=== PATIENT | male | born 1965 | race Caucasian/White ===

== ENCOUNTER 2016-12-17 21:06 | Emergency (ER) | payer BC ==
[2016-12-17] MEDS ORDERED: Acetaminophen TAB* 325 MG PO ONE (22:47)
--- NOTE | 2016-12-18 01:09 | ED ---
Jasper King Karl, scribed for Memo Hollingsworth MD on 12/18/16 at 0028 . Head Injury - HPI Summary HPI Summary: Pt is a 51 y/o male that presents to the ED c/o a head injury that he sustained 2 days ago. Pt reported that he fell forward out of a chair and hit his left shoulder on a table then the front of his head into a wall. Pt has a 4cm by 2 cm bruise on the top of his scalp that hurts to touch. Pt stated that he woke up the next day after hitting his head with 7/10 pain in the back of his head and top of his head, "probably the worst pain I have had in a long time, I was so out of it." Pt also reported pain in his neck/shoulders, a LIU, and stated that pretty much any movement aggravates his pain. Pt denied visual changes. - History Of Current Complaint Chief Complaint: EDHeadInjury Stated Complaint: FALL/HEAD INJURY Time Seen by Provider: 12/17/16 22:32 Hx Obtained From: Patient Mechanism Of Injury: Fall From Height Of: - a chair Onset/Duration: Started Days Ago, Traumatic, Still Present Onset of Pain: Immediate Severity Currently: Moderate Pain Intensity: 7 - head pain Pain Scale Used: 0-10 Numeric Location of Head Injury: Frontal Character: Throbbing Aggravating Factor(s): Movement Associated Signs And Symptoms: Neck Pain, Bruising, Headache - Allergies/Home Medications Allergies/Adverse Reactions: Allergies Allergy/AdvReac Type Severity Reaction Status Date / Time No Known Allergies Allergy Verified 12/17/16 21:26 PMH/Surg Hx/FS Hx/Imm Hx Endocrine/Hematology History: Denies: Hx Diabetes Cardiovascular History: Denies: Hx Hypertension, Hx Pacemaker/ICD Respiratory History: Denies: Hx Asthma, Other Respiratory Problems/Disorders - VALVE ISSUES History: Denies: Hx Dialysis, Hx Renal Disease Sensory History: Denies: Hx Hearing Aid Psychiatric History: Denies: Hx Panic Disorder - Cancer History Hx Chemotherapy: No Hx Radiation Therapy: No - Surgical History Surgery Procedure, Year, and Place: RT WRIST,APPY 2006 Infectious Disease History: No Infectious Disease History: Denies: Traveled Outside the [place] in Last 30 Days - Family History Known Family History: Positive: Cardiac Disease, Hypertension Negative: Diabetes - Social History Alcohol Use: None Substance Use Type: Reports: None Smoking Status (MU): Unknown if Ever Smoked Review of Systems Constitutional: Negative Negative: Blurred Vision ENT: Negative Cardiovascular: Negative Respiratory: Negative Gastrointestinal: Negative Genitourinary: Negative Positive: Myalgia - neck/shoulder pain Positive: Bruising - 4cm by 2cm bruise on top of scalp Positive: Headache Psychological: Normal All Other Systems Reviewed And Are Negative: Yes Physical Exam Triage Information Reviewed: Yes Vital Signs On Initial Exam: Initial Vitals Temp Pulse Resp BP Pulse Ox 99.0 F 90 18 180/108 98 12/17/16 21:16 12/17/16 21:16 12/17/16 21:16 12/17/16 21:16 12/17/16 21:16 Vital Signs Reviewed: Yes Appearance: Positive: Well-Appearing, No Pain Distress Skin: Positive: Warm, Skin Color Reflects Adequate Perfusion, Dry Head/Face: Positive: Scalp - tender to palpation at 4cm by 2cm bruise on top of scalp. Negative: Cephalohematoma Eyes: Positive: EOMI, LIDIA ENT: Positive: Normal ENT inspection, TMs normal Neck: Positive: Supple, Tenderness @ - uppper cervical spine with good ROM Respiratory/Lung Sounds: Positive: Clear to Auscultation, Breath Sounds Present Cardiovascular: Positive: RRR Abdomen Description: Positive: Nontender, Soft Bowel Sounds: Positive: Present Musculoskeletal: Positive: Strength/ROM Intact, Other - tender in LUE near shoulder Neurological: Positive: Normal, Sensory/Motor Intact, Alert, Oriented to Person Place, Time Psychiatric: Positive: Affect/Mood Appropriate - Darell Coma Scale Coma Scale Total: 15 Diagnostics - Vital Signs Vital Signs Temp Pulse Resp BP Pulse Ox 12/17/16 21:16 99.0 F 90 18 180/108 98 - Laboratory Lab Statement: Any lab studies that have been ordered have been reviewed, and results considered in the medical decision making process. - CT CT Brain CT Interpretation: No Acute Changes CT Interpretation Completed By: Radiologist - IMPRESSION: No acute intracranial pathology. CT Cervical Spine CT Interpretation: No Acute Changes CT Interpretation Completed By: Radiologist - IMPRESSION: No acute cervical spine injury. Head Injury Course/Dx Assessment/Plan: IMPROVED IN ED WITH ACETAMINOPHEN. DISCUSSED RESULTS WITH PATIENT. DISCHARGE HOME STABLE. - Diagnoses Provider Diagnoses: Concussion, Cervical strain Discharge - Discharge Plan Condition: Stable Disposition: HOME Patient Education Materials: Concussion (ED), Cervical Strain (ED) Referrals: Frank Langford MD [Primary Care Provider] - Additional Instructions: FOLLOW UP WITH YOUR DOCTOR. RETURN TO THE EMERGENCY DEPARTMENT FOR ANY WORSENING OF YOUR CONDITION; WEAKNESS , NUMBNESS, DIFFICULTY WITH VISION OR SPEECH, YOU FEEL ILL OR QUESTIONS OR CONCERNS. The documentation as recorded by the Jasper camp Karl accurately reflects the service I personally performed and the decisions made by me, Memo Hollingsworth MD.
[2016-12-18 01:39] VITALS: BP 138/90
--- NOTE | 2016-12-18 07:28 | RAD ---
INDICATION: Trauma, headache. COMPARISON: Comparison is made with a prior CT of the brain from November 27, 2012. TECHNIQUE: Contiguous axial sections of the brain were obtained from the skull base to the vertex without contrast. FINDINGS: The ventricles, cisterns and sulci are within normal limits. No significant focal abnormality or mass effect is seen. There is no evidence for hemorrhage. No significant focal osseous abnormality is seen. The visualized portion of the paranasal sinuses and mastoid air cells appear clear. IMPRESSION: NO EVIDENCE FOR ACUTE INTRACRANIAL ABNORMALITY.
--- NOTE | 2016-12-18 07:31 | RAD ---
INDICATION: Trauma, neck pain. COMPARISON: There are no prior studies available for comparison. TECHNIQUE: Contiguous axial sections were obtained from the skull base through the C7 vertebra. Images were reconstructed in the sagittal and coronal planes. FINDINGS: There is straightening of the cervical spine with loss of the normal cervical lordosis. No prevertebral soft tissue swelling or fracture is seen. At the C5-6 level there is posterior uncinate process spurring associated with a mild broad-based disc bulge. There are mild hypertrophic changes within the facet joints. There is mild spinal canal narrowing and moderate bilateral neural foraminal narrowing. IMPRESSION: 1. STRAIGHTENING OF THE CERVICAL SPINE, NO EVIDENCE FOR FRACTURE OR SUBLUXATION. 2. MODERATE DEGENERATIVE DISC DISEASE AT THE C5-6 LEVEL.
== END 2016-12-18 01:56 | disposition home or self-care (01) ==
LOC: ED 21:06
DX: S06.0X9A Concussion with loss of consciousness of unspecified duration, initial encounter (principal); S16.1XXA Strain of muscle, fascia and tendon at neck level, initial encounter; M50.322 Other cervical disc degeneration at C5-C6 level; W07.XXXA Fall from chair, initial encounter; Y93.9 Activity, unspecified; Y92.9 Unspecified place or not applicable
CPT/HCPCS: 70450; 72125; 99282; A9270-GY

== ENCOUNTER 2020-12-21 04:55 | Inpatient (IN) ==
[2020-12-21 05:38] LABS: ABS Basophils 0.1 10^3/ul (0-0.2); ABS Eosinophils 0.3 10^3/ul (0-0.6); ABS Monocytes 0.9 10^3/ul (0-0.8); ABS Neutrophils 5.2 10^3/ul (1.5-7.7); Eosinophil % 3.1 %; Hematocrit 43 % (42-52); Hemoglobin 14.4 g/dL (14.0-18.0); Mean Corpuscular HGB Conc 34 g/dL (31-36); Mean Corpuscular Hemoglobin 31 pg (27-31); Mean Corpuscular Volume 93 fL (80-94); Mean Platelet Volume 8.6 fL (7.4-10.4); Platelet Count 195 10^3/uL (150-450); Red Blood Count 4.59 10^6 /uL (4.18-5.48); Red Cell Distribution Width 13 % (10-15); White Blood Count 8.5 10^3/uL (3.5-10.8)
[2020-12-21] MEDS ORDERED: Aspirin EC 81 mg TAB.EC (enteric coated) ONE (05:41)
[2020-12-21 05:55] LABS: ALT 21 U/L (7-52); AST 36 U/L (13-39); Albumin 4.3 g/dL (3.2-5.2); Albumin/Globulin Ratio 1.7 (1-3); Alkaline Phosphatase 60 U/L (34-104); Anion Gap 8 mmol/L (2-11); BUN/Creatinine Ratio 13.8 (8-20); Blood Urea Nitrogen 15 mg/dL (6-24); CO2 Carbon Dioxide 29 mmol/L (22-32); Calcium 9.5 mg/dL (8.6-10.3); Chloride 105 mmol/L (101-111); EGFR Non-African American 70.2 (>60); Globulin 2.6 g/dL (2-4); Glucose 89 mg/dL (70-100); Potassium 3.7 mmol/L (3.5-5.0); Sodium 142 mmol/L (135-145); Total Protein 6.9 g/dL (6.4-8.9)
[2020-12-21 06:12] LABS: Troponin I 1.75 ng/mL (<0.03)
[2020-12-21] MEDS ORDERED: nitroGLYCERIN DRIP 25,000 MCG/250 ML BTL IV ONE (06:14)
[2020-12-21] MEDS ORDERED: Morphine 4 MG/ML VIAL (1 ml) IV ONE (06:15)
[2020-12-21] MEDS ORDERED: Heparin DRIP 25,000 UNITS BAG 25,000 UNITS/500 ML BAG IV SCH (06:15)
[2020-12-21] MEDS: Heparin 5000 UNITS/ML 1 mL VIAL IV SCH (06:34)
[2020-12-21] MEDS ORDERED: diPHENhydraMINE IV 50 MG/ML 1 ml VIAL (BENADRYL) IV ONE (08:04)
[2020-12-21] MEDS ORDERED: Iohexol 350 (CONTRAST) 500 ML MDV IV ONE (08:09)
[2020-12-21] MEDS ORDERED: Hydrocortisone INJ 100 MG/2ML 2 ML VIAL IV ONE (08:22)
[2020-12-21 08:42] LABS: Blood Urea Nitrogen 15 mg/dL (6-24); EGFR African American 98.4 (>60); EGFR Non-African American 81.3 (>60)
[2020-12-21 08:46] LABS: Cholesterol 251 mg/dL; HDL Cholesterol 46.4 mg/dL; LDL Cholesterol 144 mg/dL; Triglycerides 302 mg/dL
[2020-12-21 08:50] LABS: Troponin I 3.16 ng/mL (<0.03)
[2020-12-21] MEDS ORDERED: Ondansetron 4 mg VIAL 2 MG/ML 2 ml VIAL IV PRN (09:36)
[2020-12-21] MEDS ORDERED: Perflutren Lipid Microsphere 3 ML VIAL ONE (12:17)
[2020-12-21 12:43] LABS: Troponin I 4.41 ng/mL (<0.03)
[2020-12-21 18:34] LABS: Troponin I 3.16 ng/mL (<0.03)
[2020-12-21] MEDS ORDERED: NS 0.9% 1000 ml BAG 1,000 ML IV SCH (23:55)
[2020-12-22] MEDS: Heparin 5000 UNITS/ML 1 mL VIAL IV SCH (00:33)
[2020-12-22 06:25] LABS: ABS Basophils 0.1 10^3/ul (0-0.2); ABS Lymphocytes 1.2 10^3/ul (1.0-4.8); ABS Monocytes 0.7 10^3/ul (0-0.8); ABS Neutrophils 11.3 10^3/ul (1.5-7.7); Hematocrit 38 % (42-52); Hemoglobin 12.9 g/dL (14.0-18.0); Mean Corpuscular HGB Conc 34 g/dL (31-36); Mean Corpuscular Hemoglobin 31 pg (27-31); Mean Corpuscular Volume 92 fL (80-94); Mean Platelet Volume 8.7 fL (7.4-10.4); Platelet Count 167 10^3/uL (150-450); Red Blood Count 4.13 10^6 /uL (4.18-5.48); Red Cell Distribution Width 13 % (10-15); White Blood Count 13.2 10^3/uL (3.5-10.8)
[2020-12-22 06:38] LABS: Anion Gap 6 mmol/L (2-11); BUN/Creatinine Ratio 13.5 (8-20); Blood Urea Nitrogen 12 mg/dL (6-24); CO2 Carbon Dioxide 25 mmol/L (22-32); Chloride 107 mmol/L (101-111); EGFR African American 107.4 (>60); EGFR Non-African American 88.7 (>60); Glucose 130 mg/dL (70-100); Sodium 138 mmol/L (135-145)
[2020-12-22 06:40] LABS: Troponin I 2.59 ng/mL (<0.03)
[2020-12-22] MEDS: Aspirin EC 81 mg TAB.EC (enteric coated) PO SCH (07:49)
[2020-12-22] MEDS ORDERED: diPHENhydraMINE 25 mg TAB PO PRN (08:00)
[2020-12-22] MEDS ORDERED: Midazolam 5 mg/5 ml VIAL 1 mg/ml 5 ml VIAL (5 mg) ONE (08:02)
[2020-12-22] MEDS ORDERED: VERAPAMIL 2.5 MG/ML 2 ML VIAL ** 5 mg/2 ml ONE (08:02)
[2020-12-22] MEDS ORDERED: fentaNYL 100 mcg/2 ml 50 MCG/ML VIAL ONE (08:02)
[2020-12-22] MEDS ORDERED: Heparin 1,000 UNIT/ML 10 ml (10,000 UNITS) CATHLAB/DIALYSIS ONE (08:02)
[2020-12-22] MEDS ORDERED: Lidocaine 1% VIAL 10 MG/ML VIAL ONE (08:03)
[2020-12-22] MEDS ORDERED: Iohexol 350 (CONTRAST) 200 ML MDV IV ONE ×2 (08:03→08:04)
[2020-12-22] MEDS ORDERED: nitroGLYCERIN DRIP 25,000 MCG/250 ML BTL ONE (08:03)
[2020-12-22] MEDS ORDERED: Heparin 2 UNITS/ML 1000 mls 2,000 ML IV ONE (08:03)
[2020-12-22] MEDS ORDERED: Bivalirudin 250 MG VIAL ONE (08:49)
[2020-12-22] MEDS ORDERED: Influenza VAC *QUAD* 2020-21* 0.5 ML SYRINGE IM ONE (09:00)
[2020-12-22] MEDS ORDERED: NS 0.9% 1000 ml BAG 1,000 ML IV SCH (09:45)
[2020-12-22] MEDS: Heparin 5000 UNITS/ML 1 mL VIAL SUBCUT SCH (20:45)
[2020-12-23 06:06] LABS: ABS Basophils 0.1 10^3/ul (0-0.2); ABS Eosinophils 0.1 10^3/ul (0-0.6); ABS Lymphocytes 1.9 10^3/ul (1.0-4.8); ABS Monocytes 0.7 10^3/ul (0-0.8); ABS Neutrophils 6.6 10^3/ul (1.5-7.7); Eosinophil % 1.3 %; Hematocrit 38 % (42-52); Hemoglobin 12.8 g/dL (14.0-18.0); Lymphocyte % 20.1 %; Mean Corpuscular HGB Conc 34 g/dL (31-36); Mean Corpuscular Hemoglobin 32 pg (27-31); Mean Corpuscular Volume 93 fL (80-94); Mean Platelet Volume 9.1 fL (7.4-10.4); Platelet Count 149 10^3/uL (150-450); Red Blood Count 4.07 10^6 /uL (4.18-5.48); Red Cell Distribution Width 13 % (10-15); White Blood Count 9.3 10^3/uL (3.5-10.8)
[2020-12-23 06:32] LABS: BUN/Creatinine Ratio 11.3 (8-20); Calcium 8.8 mg/dL (8.6-10.3); EGFR African American 97.2 (>60); EGFR Non-African American 80.4 (>60); Magnesium 1.9 mg/dL (1.9-2.7); Potassium 3.6 mmol/L (3.5-5.0)
[2020-12-23] MEDS: Heparin 5000 UNITS/ML 1 mL VIAL SUBCUT SCH (08:08)
[2020-12-23] MEDS: Aspirin EC 81 mg TAB.EC (enteric coated) PO SCH (08:08)
[2020-12-23 12:18] VITALS: BP 117/76
== END 2020-12-23 13:30 | disposition home or self-care (01) | DRG 247 ==
LOC: ED 04:55 → ICU 09:22
PROVIDERS: ADMIT Internal Medicine; ATTEND Internal Medicine Critical Care Medicine